=== PATIENT | female | born 1970 | race Caucasian/White ===

== ENCOUNTER 2016-09-04 22:12 | Emergency (ER) | payer OTHER ==
[2016-09-04 22:22] VITALS: BP 100/60; PULSE 76; RESP 14; TEMP 99.8; O2SAT 95
[2016-09-04] MEDS ORDERED: OSELTAMIVIR PHOSPHATE 75 MG CAP PO ONE (23:01)
--- NOTE | 2016-09-04 23:03 | UCPHY ---
H & P Time Seen by Provider: 09/04/16 22:27 Patient Type: New HPI/ROS: Today this patient developed mild coryza associated with chills fevers to 103 and myalgias that are diffuse. She also has a feeling of mild anterior neck discomfort. Minimal sore throat. She has been taking ibuprofen with partial improvement. She thinks she has influenza. ROS: No significant fatigue or other constitutional symptoms. HEENT: No facial pain. No ear pain. Pulmonary: No significant cough. No pleuritic pain or dyspnea cardiovascular: No lightheadedness. No chest pain. GI: No nausea vomiting or belly pain. : No urinary symptoms. 10 point ROS is otherwise negative Smoking Status: Never smoked Physical Exam: General Appearance: Alert, no distress. Eyes: Pupils equal and round no pallor or injection. ENT, Mouth: Mucous membranes moist. Nose: Mild clear discharge. No sinus tenderness to percussion. Oropharynx: No erythema or exudates appreciated. No dysphonia. Respiratory: There are no retractions, lungs are clear to auscultation. Cardiovascular: Regular rate and rhythm. Gastrointestinal: Abdomen is soft and nontender, no masses, bowel sounds normal. Back: No CVA tenderness Neurological: Alert with no focal deficits. Skin: Warm and dry, no rashes. Musculoskeletal: Neck is supple nontender. Psychiatric: Mood and affect are normal DIFFERENTIAL DIAGNOSIS: After history and physical exam differential diagnosis was considered for influenza, flu-like illness, pharyngitis Constitutional: Initial Vital Signs Temperature (C) 37.7 C 09/04/16 22:17 Heart Rate 76 09/04/16 22:17 Respiratory Rate 14 09/04/16 22:17 Blood Pressure 100/60 09/04/16 22:17 O2 Sat (%) 95 09/04/16 22:17 O2 Delivery Mode Room Air Allergies/Adverse Reactions: No Known Allergies Allergy (Unverified 09/04/16 22:22) Home Medications: Medication Instructions Recorded Oseltamivir Phosphate [Tamiflu 75 75 mg PO BID #10 cap 09/04/16 mg (*)] MDM/Departure - MDM Diagnostics: Rapid flu and rapid strep were negative. However, the patient's nurse reports that she was unable to get a good nasal swab due to the patient not tolerating it for the flu. Medications Given: Discontinued Medications Oseltamivir Phosphate (Tamiflu) 75 mg PO EDNOW ONE Stop: 09/04/16 23:02 Last Admin: 09/04/16 23:04 Dose: 75 mg ED Course/Re-evaluation: Discussion: I think this patient has influenza. I counseled regarding this. She is given a 1st dose of Tamiflu. Other than her fever, her vitals are normal and she appears clinically well. She does not have septic physiology or any other concerning findings - Depart Disposition: Home, Routine, Self-Care Clinical Impression: Influenza Condition: Good Instructions: Influenza (ED) Additional Instructions: Diagnosis: Influenza Plan: Humidifier if needed Ibuprofen-600 mg per 6 hours as needed for aches or fevers. Tamiflu as prescribed Follow up with physician if her symptoms are worsening instead of improving Prescriptions: Oseltamivir Phosphate [Tamiflu 75 mg (*)] 75 mg PO BID #10 cap Referrals: Yuli Panchal MD [Primary Care Provider] - As per Instructions - PQRS PQRS Measurement: NA
== END 2016-09-04 23:09 | disposition home or self-care (01) ==
LOC: CED 22:12
DX: J11.1 Influenza due to unidentified influenza virus with other respiratory manifestations (principal)
CPT/HCPCS: 87400-PO; 87880-PO; G0463-PO